=== PATIENT | female | born 1970 | race Two or more races ===

== ENCOUNTER 2025-07-24 08:49 | Emergency (ER) | payer MEDICAID, SELFPAY ==
[2025-07-24 09:09] VITALS: PULSE 76; RESP 18; O2SAT 98
--- NOTE | 2025-07-24 09:17 | EKG_ITS ---
[facility] Test Date: 2025-07-24 Pat Name: RAAD GARCIA Department: Room: - Gender: Female Moisture Tester: : 1970 Requested By: Octavio Heaton (RICKY) Order Number: [id number] Reading MD: Octavio Heaton (AIR SEALING TECHNICIAN) Measurements Intervals [place] Rate: 73 P: 52 W[place]: 151 QRS: -7 QRSD: 86 T: 56 QT: 402 QTc: 444 Interpretive Statements SINUS RHYTHM No previous ECG available for comparison /store/S0/[id number].pdf
[2025-07-24 09:21] VITALS: BP 138/94; PULSE 64; RESP 18; TEMP 36.9; O2SAT 96; BMI 29.1
--- NOTE | 2025-07-24 09:25 | XR_ITS ---
Examination: CT brain head without contrast. 2-D sagittal coronal reconstructions Date and time of exam: July 24, 2025, 0933 hours INDICATIONS: Generalized head pain today CTDI: vol (mGy): 50.3 DLP: (mGycm): 1026 Technique: Multiple CT axial sections of the brain have been obtained, 5 mm slice thickness. Contrast has not been administered. 2-D sagittal, coronal reconstructions have been obtained Low dose protocols were performed. One or more of the following dose reduction techniques were used; automated exposure control, adjustment of the mA and/or KV according to patient size, use of iterative reconstruction technique. Findings: No significant ventricular enlargement. Intra-axial or extra-axial hemorrhage density is not seen. No mass effect or midline shift Basal cisterns are not remarkable. Fourth ventricle is midline. Cranial vault intact. Impression: Negative for acute hemorrhage, mass effect or midline shift Advise clinical correlation and follow-up accordingly
--- NOTE | 2025-07-24 09:27 | PD.EDRME ---
Rapid Medical Screening Exam RME Arrival date/time: 07/24/25 08:49 55-year-old female presents to the Emergency Department for complaint of dizziness today Chief Complaint: Dizziness Vital signs: Vital Signs Temperature 98.5 F 07/24/25 09:21 Pulse Rate 64 07/24/25 09:21 Respiratory Rate 18 07/24/25 09:21 Blood Pressure 138/94 H 07/24/25 09:21 Pulse Oximetry (%) 96 07/24/25 09:21 Oxygen Delivery Method Room Air 07/24/25 09:21
[2025-07-24] MEDS: MECLIZINE HCL 25 MG TABLET 50 MG PO (09:39)
[2025-07-24 10:00] LABS: Basophils # (Auto) 0.0 Thou/mm3 (0.0-0.2); Basophils % (Auto) 0 % (0-2.5); Eosinophils # (Auto) 0.1 Thou/mm3 (0.0-0.5); Eosinophils % (Auto) 2 % (0-10); Hematocrit 43.5 % (36.0-46.0); Hemoglobin 14.5 g/dL (12.0-16.0); Immature Granulocytes Auto 0.02 Thou/mm3 (0.00-0.00); Lymphocytes # (Auto) 1.7 Thou/mm3 (1.0-4.8); Lymphocytes % (Auto) 23 % (10-50); Mean Corpuscular HGB Conc 33.3 g/dl (31.0-37.0); Mean Corpuscular Hemoglobin 30.6 pg (25.0-35.0); Mean Corpuscular Volume 92 fL (80-100); Monocytes # (Auto) 0.4 Thou/mm3 (0.0-0.8); Monocytes % (Auto) 5 % (0-12); Neutrophils # (Auto) 5.1 Thou/mm3 (1.8-7.7); Neutrophils % (Auto) 70 % (37-80); Nucleated Red Blood Cell # 0.00 Thou/mm3 (0.00-0.00); Nucleated Red Blood Cell % 0 /100 WBC (0); Platelet Count 207 Thou/mm3 (140-440); RDW Standard Deviation 42.4 fL (36.4-46.3); Red Blood Count 4.74 Miln/mm3 (4.00-5.20); White Blood Count 7.4 Thou/mm3 (3.6-11.0)
[2025-07-24 10:17] LABS: INR 1.0 (0.9-1.3); Partial Thromboplastin Time 28.8 Seconds (22.0-36.0); Prothrombin Time 10.3 Seconds (9.0-12.2)
[2025-07-24 10:18] LABS: B-Type Natriuretic Peptide 23 pg/mL (0-100)
[2025-07-24 10:20] LABS: Alanine Aminotransferase 17 U/L (10-49); Albumin, Serum 4.7 gm/dL (3.5-5.0); Anion Gap 10 (7-16); Aspartate Amino Transferase 26 U/L (0-34); BUN/Creatinine Ratio 23 Ratio (12-20); Bilirubin,Total 1.2 mg/dL (0.3-1.2); Blood Urea Nitrogen 14 mg/dL (9-23); Calcium 9.3 mg/dL (8.3-10.6); Carbon Dioxide 27.6 mMol/L (20.0-31.0); Chloride 103 mMol/L (98-107); Creatinine (Component) 0.6 mg/dL (0.6-1.3); Estimated Creatinine Clearance 111.6 mL/min (>60); Glucose 112 mg/dL (74-106); Magnesium 2.0 mg/dL (1.6-2.6); Osmolality,Calculated 282 (275-295); Potassium 3.9 mMol/L (3.4-5.1); Sodium 141 mMol/L (136-145); Total Protein 7.2 gm/dL (5.7-8.2); Troponin I < 0.002 ng/mL (0.0-0.045); eGFR > 60 See Note
[2025-07-24 10:21] LABS: Albumin/Globulin Ratio 1.9 (1.2-2.2); Alkaline Phosphatase 71 U/L (46-116); Calcium (Corrected) 9.3 mg/dL (8.5-10.1); Globulin 2.5 gm/dL (2.3-3.5)
[2025-07-24 12:06] LABS: Collection Type, Urine Clean Catch; Squamous Epithelial Cell,Urine 0 /hpf (0-5)
[2025-07-24 12:23] LABS: Bacteria,Urine Rare; Bilirubin,Urine Negative (Negative); Blood,Urine Negative (Negative); Clarity,Urine Turbid (Clear/Hazy); Color,Urine Lt-Yellow (Lt Yel-Yel); Culture Indicated,Urine Not Indicated; Glucose, Urine Negative (Negative); Ketones,Urine Negative (Negative); Leukocyte Esterase,Urine Negative (Negative); Nitrite,Urine Negative (Negative); PH,Urine 7.5 (5.0-7.0); Protein,Urine Trace (Neg - Trace); RBC,Urine 2 /hpf (0-3); Specific Gravity,Urine 1.018 (1.001-1.035); Urobilinogen,Urine Negative mg/dL (0.0-1.0); WBC,Urine 1 /hpf (0-5)
[2025-07-24 12:24] LABS: Amphetamine/Methamp Scrn,U Negative (Negative); Barbiturate Screen,Urine Negative (Negative); Benzodiazepines Screen,Urine Negative (Negative); Benzoylecgonine Screen, Ur Negative (Negative); Fentanyl Screen,Urine Negative (Negative); Opiate Screen,Urine Negative (Negative); THC Screen,Urine Negative (Negative)
--- NOTE | 2025-07-24 12:36 | PD.EDWEAK ---
ED Weakness RME/HPI General Chief complaint: Dizziness Stated complaint: DIZZINESS Time Seen by Provider: 07/24/25 12:33 Source: patient Arrival date/time: 07/24/25 08:49 Mode of arrival: ambulatory Limitations: no limitations RME / HPI RME / HPI Narrative: 07/24/25 08:49 55-year-old female presents to the Emergency Department for complaint of dizziness today Ulysses mas Patient is a 55 yo female that is in the ED with concerns for feeling dizzy when she moves her head. Per the patient last night she noticed that when she moves her head to the left she gets dizzy. When she sits up she feels better after a few seconds, when she moves her head again to 1 side starts feeling dizzy. Denies fever, chills, nausea, vomiting, cough, abdominal pain, recent travel, sick contacts. Denies any weakness slurred speech Patient has a history of GERD Related Data Home Medications ?Medication ?Instructions ?Recorded ?Confirmed famotidine 40 mg tablet (Pepcid) 40 mg PO BID 12/02/17 12/02/17 ferrous sulfate 325 mg (65 mg 325 mg PO QDAY 12/02/17 12/02/17 iron) tablet (Iron (ferrous sulfate)) Previous Rx's ?Medication ?Instructions ?Recorded albuterol sulfate 90 mcg/actuation 2 puff inhalation Q4H PRN 12/02/17 aerosol inhaler shortness of breath or wheezing #18 grams hydrocodone 5 mg-acetaminophen 325 1 tab PO Q6H PRN pain #20 tabs 12/03/17 mg tablet (Isabella) hydrocodone 5 mg-acetaminophen 325 1 tab PO Q6H #10 tabs 18 mg tablet (Isabella) metoclopramide HCl 5 mg tablet 5 mg PO QDAY #5 tabs 07/24/25 (Reglan) Allergies Allergy/AdvReac Type Severity Reaction Status Date / Time No Known Allergies Allergy Verified 07/24/25 09:17 ED Exam General Limitations: Present no limitations General appearance: Present alert Head Head exam: Present atraumatic and normocephalic Eye Eye exam: Present normal appearance and PERRL ENT ENT exam: Present normal exam Neck Neck exam: Present normal inspection and full ROM Chest Chest inspection: Present normal inspection and symmetric chest wall rise Respiratory Respiratory exam: Absent respiratory distress Cardiovascular Cardiovascular exam: Present regular rate Abdominal Exam Abdominal exam: Present soft; Absent distention, tenderness or guarding Extremities Exam Extremities exam: Present normal inspection Neurological Exam Neurological exam: Present alert and other (no FND, intact finger-nose, intact [id number]-bnki, no dysdiadochokinesia, visual eckert intact, no vertical, no horizontal, no rotary nystagmus, pupils equal round and reactive to light) Psychiatric Psychiatric exam: Present normal affect Skin Skin exam: Present warm, dry and intact Course Quality Measures none Orders Category Date Time Status EKG (ED ONLY) *Do not use* NOW Care 07/24/25 09:[address] head/brain wo con Stat Exams 07/24/25 09:25 Completed EKG (ED Only) Stat Exams 07/24/25 09:17 Draft B-Type Natriuretic Peptide Stat Lab 07/24/25 09:40 Completed CBC Stat Lab 07/24/25 09:40 Completed Comprehensive Metabolic Panel Stat Lab 07/24/25 09:40 Completed Drug Screen,Urine Stat Lab 07/24/25 11:58 Completed HCG Qualitative,Urine Stat Lab 07/24/25 11:58 Results Magnesium Stat Lab 07/24/25 09:40 Completed Partial Thromboplastin Time Stat Lab 07/24/25 09:40 Completed Prothrombin Time with INR Stat Lab 07/24/25 09:40 Completed Troponin I Stat Lab 07/24/25 09:40 Completed Urinalysis, C/S if Indicated Stat Lab 07/24/25 11:58 Results DiphenhydrAMINE [Benadryl] Med 07/24/25 12:53 Once 25 mg PO X1 ONE Meclizine HCl [Antivert] Med 07/24/25 09:25 Discontinued 50 mg PO X1 ONE Metoclopramide [Reglan] Med 07/24/25 12:53 Once 5 mg PO X1 ONE Vital Signs Vital signs: Vital Signs Temperature 98.5 F 07/24/25 09:21 Pulse Rate 64 07/24/25 09:21 Respiratory Rate 18 07/24/25 09:21 Blood Pressure 138/94 H 07/24/25 09:21 Pulse Oximetry (%) 96 07/24/25 09:21 Oxygen Delivery Method Room Air 07/24/25 09:21 Weakness MDM Narrative MDM Narrative:: Patient is a 55-year-old female seen emerged primary concerns for feeling dizzy. Vital signs and exam as listed. Concern for vertigo, metabolic derangement, dehydration. Patient without any focal neurodeficits. Symptoms are reproducible with movement of the head to 1 side. Less likely stroke. Prior provider evaluated patient. Ordered labs EKG CT brain. Offer medication for symptom relief. EKG performed today at 9:22a sinus rhythm, nl int, non spec T wave changes, not a cardiac alert. Trop not elevated. Labs w/o any acute hemaologic or metabolic abnl. Urinalysis without evidence of infection, drug screen negative. CT brain unremarkable On reevaluation patient hemodynamically stable not in distress symptoms improved. Will discharge to home with close return precautions follow-up with her primary care doctor as well as recommendation that she sees a neurologist. Advised her on hydrating well. Also provided extensive return precautions. Patient data External records reviewed:: [facility] previous records Clinical information provided by:: patient Social determinants that could affect healthcare access:: none Patient has the following chronic illnesses:: see mdm How is presenting disease/condition affected by chronic disease/condition?: exacerbated by Evaluation data The following diagnostics were reviewed and interpreted by me:: lab results and radiology exam(s) Lab and/or radiology exams considered but not ordered:: none Interpretation Summary: see [facility] [place] Medications / Prescriptions Medications or Prescriptions considered but not ordered:: none Medication administrations:: Medication Administration History Diphenhydramine HCl (Diphenhydramine 25 Mg Capsule) 25 mg PO X1 ONE Stop: 07/24/25 12:54 Metoclopramide HCl (Metoclopramide 5 Mg Tablet) 5 mg PO X1 ONE Stop: 07/24/25 12:54 Discontinued Medications Meclizine HCl (Meclizine Hcl 25 Mg Tablet) 50 mg PO X1 ONE Stop: 07/24/25 09:26 Last Admin: 07/24/25 09:39 Dose: 50 mg Documented By: see above Consultations Consultation(s) initiated? (list below): No Diagnosis Weakness Differential Diagnosis: other Most likely diagnosis given after review of the tests above:: Vertigo Admission Indicated Admission indicated?: not indicated Admission Request Was there a request for admission?: No Disposition Plan Disposition Plan: Discharge Discharge Attestation Discharge Attestation: The patient and all family members were given an opportunity to ask questions and understood the discharge instructions. Discharge instructions specifically effects, indications for sooner follow up or return to the emergency department, and the expected course of current diagnosis. Patient condition: Stable Discharge Plan Plan Patient Disposition: HOME (Self Care) Prescriptions/Referrals Prescriptions/Med Rec: New metoclopramide HCl [Reglan] 5 mg tablet 5 mg PO QDAY Qty: 5 0RF No Action albuterol sulfate 90 mcg/actuation HFA aerosol inhaler 2 puff INH Q4H PRN (Reason: shortness of breath or wheezing) Qty: 18 0RF Rx Instructions: administer with spacer famotidine [Pepcid] 40 mg Tablet 40 mg PO BID ferrous sulfate [Iron (ferrous sulfate)] 325 mg (65 mg iron) Tablet 325 mg PO QDAY hydrocodone-acetaminophen [Isabella] 5-325 mg tablet 1 tab PO Q6H MDD 4 PRN (Reason: pain) Qty: 20 0RF hydrocodone-acetaminophen [Isabella] 5-325 mg tablet 1 tab PO Q6H MDD 4 Qty: 10 0RF Referrals: No Primary/Family,Physician [Primary Care Provider] - In 1 week Problem List Clinical Impression: Weakness, Vertigo Patient/Caregiver Discharge Instructions Education Materials: Anatomy of the Inner Ear, ED Weakness (Uncertain Cause) Additional Instructions: Hidr?tese ying y norberto un seguimiento con zambrano m?dico de atenci?n primaria dentro de 1 a 2 d?as. Regrese inmediatamente si tiene s?ntomas que empeoran o s?ntomas preocupantes. Print Language: Welsh Stand Alone Forms: Nane Award Info., Patient Portal Info Letter
[2025-07-24] MEDS: METOCLOPRAMIDE 5 MG TABLET PO (13:37)
[2025-07-24 14:43] LABS: HCG Qualitative,Urine Negative
== END 2025-07-24 15:30 | disposition home or self-care (01) ==
PROVIDERS: Nurse Practitioner Primary Care; Emergency Provider Emergency Medicine
DX: R42 Dizziness and giddiness (principal); R53.1 Weakness
CPT/HCPCS: 36415; 70450; 80053; 80307; 81001; 81025; 83735; 83880; 84484; 85025; 85610; 85730; 93005; 99283; A9270